=== PATIENT | female | born 1970 | race Caucasian/White ===

== ENCOUNTER 2018-09-10 08:43 | Emergency (ER) | payer SELFPAY ==
[2018-09-10] MEDS ORDERED: Ondansetron PF 4 MG/2 ML Vial ONE ×2 (09:28→10:24)
[2018-09-10 09:30] LABS: #Basophils 0.1 thou/uL (0.0-0.2); #Lymphocytes 1.9 thou/uL (1.20-3.40); #Monocytes 0.8 thou/uL (0.11-0.59); #Neutrophils 8.7 thou/uL (1.40-6.50); %Basophils 0.9 % (0.0-1.0); %Eosinophils 0.2 % (0.0-10.0); %Lymphocytes 16.7 % (21.0-51.0); %Monocytes 6.7 % (0.0-10.0); %Neutrophils 75.5 % (42.0-75.0); Hemoglobin 14.7 g/dL (12.0-16.0); Mean Corpuscular Hemoglobin 28.8 pg (27.0-31.0); Mean Corpuscular Volume 89.8 fL (78.0-98.0); Mean Platelet Volume 7.7 fL (7.4-10.4); Platelet Count 359 thou/uL (130-400); RBC Distribution Width 11.7 % (11.5-14.5); Red Blood Cell (RBC) Count 5.11 mill/uL (4.20-5.40); White Blood Cell (WBC) Count 11.5 thou/uL (4.8-10.8)
[2018-09-10 09:46] LABS: ALT (SGPT) 11 U/L (8-55); AST (SGOT) 15 U/L (5-34); Albumin 4.3 g/dL (3.5-5.0); Alkaline Phosphatase 44 U/L (40-150); Anion Gap 23 mmol/L (10-20); BUN (Urea Nitrogen) 14 mg/dL (7.0-18.7); Bilirubin, Total 0.7 mg/dL (0.2-1.2); Calc. Creatinine Clearance 0 mL/min (70-130); Calcium 9.9 mg/dL (7.8-10.44); Carbon Dioxide 15 mmol/L (22-29); Chloride 99 mmol/L (98-107); Estimated GFR-MDRD 69; Globulin 3.5 g/dL (2.4-3.5); Glucose 367 mg/dL (70-105); Phosphorus 2.7 mg/dL (2.3-4.7); Potassium 4.7 mmol/L (3.5-5.1); Protein, Total 7.8 g/dL (6.0-8.3); Sodium 132 mmol/L (136-145)
[2018-09-10 10:04] LABS: Base Excess-Venous -6.6 mmol/L (0 (+/- 2.5)); Bicarbonate (HCO3v) 18.6 mmol/L (1.0-85.0); CO2 Tension (PvCO2) 35.8 mmHg (41.0-51.0); Calcium, Ionized 1.13 mmol/L (1.12-1.32); Hemoglobin - Calc 16.5 g/dL (12.0-18.0); O2 Tension (PvO2) 97.9 mmHg (35.0-45.0); Potassium 4.6 mmol/L (3.4-4.7); T. Carbon Dioxide 19.7 mmol/L (1.0-85.0); pH (Venous) 7.323 (7.35-7.45); vO2 Saturation-calc 97.1 % (94-98)
[2018-09-10] MEDS ORDERED: Insulin Regular 300 UNITS/3 ML VIAL ONE (10:14)
[2018-09-10] MEDS ORDERED: Sodium Chloride 0.9% 0 ML ONE (10:15)
[2018-09-10] MEDS ORDERED: Morphine 4 MG/ML VIAL ONE (10:25)
[2018-09-10] MEDS ORDERED: Promethazine HCl 25 MG/ML VIAL ONE (10:26)
--- NOTE | 2018-09-10 10:30 | RAD ---
PORTABLE CHEST 1 VIEW: Date: 09/10/18 Time: 0910 hours HISTORY: Nausea and vomiting. FINDINGS: The heart size is normal. The lungs are expanded without focal areas of consolidation, pneumothoraces , or pleural effusions. IMPRESSION: No radiographic evidence of acute cardiopulmonary process. POS: [facility]
[2018-09-10 11:25] LABS: Bilirubin Negative (Negative); Blood, Urine Small (Negative); Clarity Clear (Clear); Glucose, Urine (Dipstick) 500 mg/dL (Negative); Leukocyte Negative (Negative); Nitrite Negative (Negative); Protein, Urine (Dipstick) Negative (Neg-Trace); Urobilinogen 0.2 mg/dL (0.2-1.0)
[2018-09-10 11:26] LABS: Bacteria/HPF None Seen HPF (None Seen); RBC/HPF None Seen HPF (0-3); Squamous Epithelial 0-3 HPF (0-3); WBC/HPF None Seen HPF (0-3)
[2018-09-10] MEDS ORDERED: D5 1/2 NS w/20 mEq KCL 1,000 ML ONE (11:40)
== END 2018-09-10 11:54 | disposition short-term general hospital (02) ==
LOC: NAV ERS 08:43
DX: E10.10 Type 1 diabetes mellitus with ketoacidosis without coma (principal); F41.9 Anxiety disorder, unspecified; F32.9 Major depressive disorder, single episode, unspecified; I10 Essential (primary) hypertension; E03.9 Hypothyroidism, unspecified; Z79.899 Other long term (current) drug therapy; Z79.891 Long term (current) use of opiate analgesic
CPT/HCPCS: 36416; 71045; 80053; 81003; 81015; 82010; 82330; 82435; 82803; 83690; 83735; 84100; 84132; 84295; 85014; 85025; 96361; 96365; 96375; 96376; J1815; J2270; J2405; J2550; J7050